=== PATIENT | female | born 2000 | race Caucasian/White ===

== ENCOUNTER 2018-04-09 20:27 | Emergency (ER) | payer BC ==
--- NOTE | 2018-04-09 22:00 | UC ---
Throat Pain/Nasal Joe HPI - HPI Summary HPI Summary: sore throat fever and chills for 2 days - History of Current Complaint Chief Complaint: UCRespiratory Stated Complaint: THROAT PAIN Time Seen by Provider: 04/09/18 21:53 Hx Obtained From: Patient Hx Last Menstrual Period: 1 WEEK AGO ?: No Onset/Duration: Sudden Onset Severity: Moderate Pain Intensity: 6 Pain Scale Used: 0-10 Numeric Cough: None Associated Signs & Symptoms: Positive: Fever - Allergies/Home Medications Allergies/Adverse Reactions: Allergies Allergy/AdvReac Type Severity Reaction Status Date / Time No Known Allergies Allergy Verified 04/09/18 21:06 Home Medications: Home Medications Control* 1 tab PO DAILY 04/09/18 [History Confirmed 04/09/18] D-Methorphan/PE/Acetaminophen [Vicks Dayquil Cold & Flu] 1 cap PO PRN 04/09/18 [ History] Ibuprofen TAB* [Advil TAB*] 200 mg PO PRN 04/09/18 [History] PMH/Surg Hx/FS Hx/Imm Hx Previously Healthy: Yes - Surgical History Surgical History: None - Family History Known Family History: Positive: None - Social History Occupation: Student Lives: Dormitory/Roommates Alcohol Use: Occasionally Substance Use Type: None Smoking Status (MU): Never Smoked Tobacco Review of Systems Constitutional: Fever, Chills Skin: Negative Eyes: Negative ENT: Sore Throat Respiratory: Negative Cardiovascular: Negative Gastrointestinal: Negative Genitourinary: Negative Motor: Negative Neurovascular: Negative Musculoskeletal: Negative Neurological: Negative Psychological: Negative Is Patient Immunocompromised?: No All Other Systems Reviewed And Are Negative: Yes Physical Exam Triage Information Reviewed: Yes Appearance: Well-Nourished, Ill-Appearing - mild, Pain Distress - mild Vital Signs: Initial Vital Signs Temp 100.2 F 04/09/18 21:02 Pulse 84 04/09/18 21:02 Resp 16 04/09/18 21:02 BP 114/65 04/09/18 21:02 Pulse Ox 98 04/09/18 21:02 Vital Signs Reviewed: Yes Eye Exam: Normal Eyes: Positive: Conjunctiva Clear ENT Exam: Normal ENT: Positive: Normal ENT inspection, Hearing grossly normal, Pharynx normal, TMs normal, Uvula midline. Negative: Nasal congestion, Tonsillar swelling, Tonsillar exudate, Trismus, Muffled voice, Hoarse voice, Dental tenderness, Sinus tenderness Dental Exam: Normal Neck exam: Normal Neck: Positive: Supple, Nontender, No Lymphadenopathy Respiratory Exam: Normal Respiratory: Positive: Chest non-tender, Lungs clear, Normal breath sounds, No respiratory distress, No accessory muscle use Cardiovascular Exam: Normal Cardiovascular: Positive: RRR, No Murmur, Pulses Normal, Brisk Capillary Refill Musculoskeletal Exam: Normal Musculoskeletal: Positive: Strength Intact, ROM Intact Neurological Exam: Normal Neurological: Positive: Alert, Muscle Tone Normal Psychological Exam: Normal Psychological: Positive: Normal Response To Family Skin Exam: Normal Diagnostics - Laboratory Diagnostic Studies Completed/Ordered: RST (-) Throat Pain/Nasal Course/Dx - Course Assessment/Plan: tylenol, ibuprofen increase fluids re-check id not resolved in 2-3 days follow at [facility] or return as needed - Differential Dx/Diagnosis Provider Diagnoses: viral pharyngitis Discharge - Sign-Out/Discharge Documenting (check all that apply): Patient Departure All imaging exams completed and their final reports reviewed: No Studies - Discharge Plan Condition: Stable Disposition: HOME Patient Education Materials: Pharyngitis (ED), Viral Syndrome (ED) Referrals: [facility] [Outside] - If Needed - Billing Disposition and Condition Condition: STABLE Disposition: Home - Attestation Statements Provider Attestation: I was available for consult. This patient was seen by the ANGUS. The patient was not presented to, seen by, or examined by me. -Capo
== END 2018-04-09 22:30 | disposition home or self-care (01) ==
LOC: UCEAST 20:27
DX: J02.8 Acute pharyngitis due to other specified organisms (principal); R50.9 Fever, unspecified
CPT/HCPCS: 87651; 99201; G0463

== ENCOUNTER 2018-08-23 00:25 | Emergency (ER) | payer BC ==
--- NOTE | 2018-08-23 00:41 | ED ---
Laceration/Wound HPI - HPI Summary HPI Summary: 17-year-old female presents with facial laceration today. She states she slipped and fell on her face. She denies any loss consciousness. No headache. denies any foreign body in wound. The area continues to bleed. Tetanus up-to -date. Has no medical conditions. Denies any pain with eye movement. No neck pain. Other injury. - History of Current Complaint Stated Complaint: FACIAL LAC Time Seen by Provider: 08/23/18 00:35 Hx Last Menstrual Period: 1 WEEK AGO Pain Intensity: 0 - Allergy/Home Medications Allergies/Adverse Reactions: Allergies Allergy/AdvReac Type Severity Reaction Status Date / Time No Known Allergies Allergy Verified 04/09/18 21:06 PMH/Surg Hx/FS Hx/Imm Hx Endocrine/Hematology History: Denies: Hx Anticoagulant Therapy Respiratory History: Denies: Hx Asthma Infectious Disease History: No Infectious Disease History: Denies: Traveled Outside the [place] in Last 30 Days - Family History Known Family History: Positive: None, Non-Contributory - Social History Alcohol Use: Occasionally Substance Use Type: Reports: None Smoking Status (MU): Never Smoked Tobacco Review of Systems Negative: Fever Negative: Chest Pain Negative: Shortness Of Breath Positive: Other - facial laceration All Other Systems Reviewed And Are Negative: Yes Physical Exam Triage Information Reviewed: Yes Vital Signs On Initial Exam: Initial Vitals Temp Pulse Resp BP Pulse Ox 97.6 F 93 16 107/81 96 08/23/18 00:25 08/23/18 00:25 08/23/18 00:25 08/23/18 00:25 08/23/18 00:25 Vital Signs Reviewed: Yes Appearance: Positive: Well-Appearing Skin: Positive: Warm, Dry, Other - 1cm by 1/2cm by 1/2cm laceration to left side of face Head/Face: Positive: Normal Head/Face Inspection Eyes: Positive: Normal, EOMI, LORRI, Conjunctiva Clear ENT: Positive: Normal ENT inspection, Pharynx normal, TMs normal Respiratory/Lung Sounds: Positive: Clear to Auscultation, Breath Sounds Present Cardiovascular: Positive: Normal, RRR Musculoskeletal: Positive: Normal Neurological: Positive: Sensory/Motor Intact, Alert, Oriented to Person Place, Time, CN Intact II-III Psychiatric: Positive: Normal Procedures - Laceration/Wound Repair 1 Location: face Description: Linear Anesthesia: Local, 1.0%, Epi Length, Depth and Shape: 1cm by 1/2cm Irrigated w/ Saline (ccs): 100 Suture Type: Prolene Number of Sutures: 1 Diagnostics - Vital Signs Vital Signs Temp Pulse Resp BP Pulse Ox 08/23/18 00:25 97.6 F 93 16 107/81 96 - Laboratory Lab Statement: Any lab studies that have been ordered have been reviewed, and results considered in the medical decision making process. Laceration Repair Course/Dx - Course Course Of Treatment: 17-year-old female presents with facial laceration today. She states she slipped and fell on her face. She denies any loss consciousness. No headache. The area continues to bleed. Tetanus up-to-date. Has no medical conditions. Denies any pain with eye movement. No neck pain. Other injury. On exam has 1cm by half centimeter laceration to left side of face. Cleaned area and placed one suture. Told to keep very clean and dry. Patient understands agrees plan. - Differential Dx Differental Diagnoses: Abrasion, Avulsion, Laceration - Clinical Impression Provider Diagnoses: Facial laceration Discharge - Sign-Out/Discharge Documenting (check all that apply): Patient Departure Patient Received Moderate/Deep Sedation with Procedure: No - Discharge Plan Condition: Good Disposition: HOME Patient Education Materials: Care For Your Stitches (ED) Referrals: No Primary Care Phys,NOPCP [Primary Care Provider] - Additional Instructions: Keep area clean and dry for 24 hours, after that can get wet but do not get it soaked such as swimming apply neosporin to the area Take Tylenol or ibuprofen for pain every 6 hours Return to ED or [facility] for suture removal in 5 days apply sunscreen to the area after it heals to prevent scaring Return to ED if develop signs of infection such as fever, spreading redness, or pus formation or any new or worsneing symptoms - Billing Disposition and Condition Condition: GOOD Disposition: Home
[2018-08-23 01:03] VITALS: BP 112/94
== END 2018-08-23 01:02 | disposition home or self-care (01) ==
LOC: ED 00:25
DX: S01.81XA Laceration without foreign body of other part of head, initial encounter (principal); W01.0XXA Fall on same level from slipping, tripping and stumbling without subsequent striking against object, initial encounter; Y92.9 Unspecified place or not applicable
CPT/HCPCS: 12011; 99282

== ENCOUNTER 2018-10-01 15:01 | Emergency (ER) | payer BC ==
[2018-10-01 15:12] VITALS: BP 98/69
--- NOTE | 2018-10-01 15:31 | UC ---
Complaint Female HPI - HPI Summary HPI Summary: 17 y/o female presents to the urgent care c/o white itchy vaginal discharge for the past 2 weeks. Itchiness has worsen since yesterday w/ mild discomfort w/ urination. Pt denies frequency or burning on urination. LMP:09/20/2018 w/ regular menstrual cycles and declines test. Pt denies Hx of STD's, pain, pelvic pain lower back pain, abdominal pain, flank pain, N/V/D. - History Of Current Complaint Chief Complaint: UCGU Stated Complaint: PRIVATE ISSUE Time Seen by Provider: 10/01/18 15:15 Hx Obtained From: Patient Hx Last Menstrual Period: September 20, 2018 ?: No - Pt declines test Onset/Duration: Gradual Onset, Lasting Weeks - 2 weeks, Still Present, Worse Since - 1 day Timing: Intermittent Severity Initially: Mild Severity Currently: Mild Pain Intensity: 2 Pain Scale Used: 0-10 Numeric Character: Burning Aggravating Factor(s): Urination Associated Signs And Symptoms: Positive: Vaginal Discharge - white w/ itchiness. Negative: Fever, Back Pain, Genital Swelling, Genital Blisters - Risk Factors Ectopic Risk Factor: Negative Ovarian Torsion Risk Factor: Negative - Allergies/Home Medications Allergies/Adverse Reactions: Allergies Allergy/AdvReac Type Severity Reaction Status Date / Time No Known Allergies Allergy Verified 04/09/18 21:06 PMH/Surg Hx/FS Hx/Imm Hx Previously Healthy: Yes - Pt denies PMHX Other History Of: Negative For: Anticoagulant Therapy - Surgical History Surgical History: None - Family History Known Family History: Positive: None - Pt denies PMHX, Non-Contributory - Social History Occupation: Student Lives: Dormitory/Roommates Alcohol Use: Weekly Substance Use Type: None Smoking Status (MU): Never Smoked Tobacco - Immunization History Vaccination Up to Date: Yes Review of Systems All Other Systems Reviewed And Are Negative: Yes Constitutional: Positive: Negative Skin: Positive: Negative Eyes: Positive: Negative ENT: Positive: Negative Respiratory: Positive: Negative Cardiovascular: Positive: Negative Gastrointestinal: Positive: Negative Genitourinary: Positive: Vaginal/Penile Itching, Vaginal/Penile Discharge Motor: Positive: Negative Neurovascular: Positive: Negative Musculoskeletal: Positive: Negative Neurological: Positive: Negative Psychological: Positive: Negative Is Patient Immunocompromised?: No Physical Exam - Summary Physical Exam Summary: Vital signs: reviewed General: well developed, well nourished female adolescent sitting in the examining table w/o any acute distress. Head: Normocephalic, no lesions. Eyes: PERRLA, EOM's full, conjunctiva clear, fundi grossly normal. Ears: EAC's clear, TM's normal. Nose: Mucosa normal, no obstruction. Throat: Clear, no exudates, no lesions. Neck: Supple, no masses, no thyromegaly, no bruits. Chest: Lungs clear, no rales, no rhonchi, no wheezes. Heart: RR, no murmurs, no rubs, no gallops. Abdomen: Soft, no tenderness, no masses, BS normal. Pelvic: External genitalia within normal limits. There is no lesions there is no masses noted. Speculum exam: The vaginal mason are within normal limits w/ normal clear vaginal discharge, no the lesions or rashes. The cervix is closed with no lesions or masses. There is no CMT's, and no adnexal masses. Sample sent to Lab for G/C and Affirm panel. Rectal: No lesions, no hemorrhoids, Back: Normal curvature, no tenderness. Extremities: FROM, no deformities, no edema, no erythema. Neuro: Physiological, no localizing findings. Skin: Normal, no rashes, no lesions noted. Triage Information Reviewed: Yes Vital Signs: Initial Vital Signs Temp 99.0 F 10/01/18 15:05 Pulse 60 10/01/18 15:05 Resp 16 10/01/18 15:05 BP 98/69 10/01/18 15:05 Pulse Ox 98 10/01/18 15:05 Complaint Female Dx - Course Course Of Treatment: 17 y/o female presents to the urgent care c/o white itchy vaginal discharge for the past 2 weeks. Itchiness has worsen since yesterday w/ mild discomfort w/ urination. Pt denies frequency or burning on urination. LMP: w/ regular menstrual cycles and declines test. Pt denies Hx of STD's, pain, pelvic pain lower back pain, abdominal pain, flank pain, N/V/D. Hx obtained. Pt w/ a white cottage cheese vaginal discharge on pelvic examination. Pt w/ probably Vulvovaginal candidiasis. Pt Rx Fluconzaole PO as directed. Sample sent to Lab for Affirm panel and GC/Chlam and trichomonas to r /o any abnormality. Pt will be notified of result. UA: 2+ leukoesterase and trace of blood. Urine sent to lab to r/o UTI. Pt declined test. D/C instructions explained. Pt understood and agreed with plan of care. - Differential Dx/Diagnosis Differential Diagnosis/HQI/PQRI: Cervicitis, Pelvic Inflammatory Disease, Sexually Transmitted Disease, Urinary Tract Infection Provider Diagnosis: Vulvovaginal candidiasis, Screening for STD (sexually transmitted disease) Discharge - Sign-Out/Discharge Documenting (check all that apply): Patient Departure - D/C home All imaging exams completed and their final reports reviewed: No Studies - Discharge Plan Condition: Stable Disposition: HOME Prescriptions: Fluconazole 150 MG TAB* [Diflucan 150 MG TAB*] 150 mg PO ONCE #1 tablet Patient Education Materials: Yeast Infection (ED) Referrals: [facility] [place] [facility] [Outside] - 3 Days Additional Instructions: 1- Please take Fluconazole PO as directed. 2- Specimen were sent to lab, if anything abnormal you will receive a call from us for further treatment. 3-If not improvement of symptoms please return to the urgent care or f/u with your [employer] INSURANCE UNDERWRITER for further treatment - Billing Disposition and Condition Condition: STABLE Disposition: Home
[2018-10-02 13:06] LABS: Trichomonas vaginalis Result Negative (Negative)
[2018-10-02 13:26] LABS: Neisseria gonorrhoeae (GC) RNA Negative (Negative)
--- NOTE | 2018-10-02 16:13 | UC ---
- Progress Note Progress Note: Please call pt - positive for BV and yeast. She was treated for yeast, but not BV. Sent flagyl Course/Dx - Diagnoses Provider Diagnoses: Vulvovaginal candidiasis, Screening for STD (sexually transmitted disease) Discharge - Sign-Out/Discharge Documenting (check all that apply): Post-Discharge Follow Up All imaging exams completed and their final reports reviewed: No Studies - Discharge Plan Condition: Stable Disposition: HOME Prescriptions: Fluconazole 150 MG TAB* [Diflucan 150 MG TAB*] 150 mg PO ONCE #1 tablet metroNIDAZOLE [Flagyl 500 MG TAB] 500 mg PO BID #14 tab Patient Education Materials: Yeast Infection (ED) Referrals: [facility] [place] [facility] [Outside] - 3 Days Additional Instructions: 1- Please take Fluconazole PO as directed. 2- Specimen were sent to lab, if anything abnormal you will receive a call from us for further treatment. 3-If not improvement of symptoms please return to the urgent care or f/u with your RN PROGRESSIVE CARE UNIT for further treatment - Billing Disposition and Condition Condition: STABLE Disposition: Home
== END 2018-10-01 15:55 | disposition home or self-care (01) ==
LOC: UCEAST 15:01
DX: B37.3 Candidiasis of vulva and vagina (principal); Z11.3 Encounter for screening for infections with a predominantly sexual mode of transmission
CPT/HCPCS: 81003; 87086; 87480; 87491; 87510; 87591; 87661; 99212; G0463